=== PATIENT | male | born 1935 | race Caucasian/White ===

== ENCOUNTER → 2017-03-30 | Outpatient (CLI) | payer OTHER ==
[~2017-03-30] MED LIST: COMBIGAN EYE DR10 ML OP
== END ==
LOC: MRI 03-22 10:37
DX: R42 Dizziness and giddiness (principal)

== ENCOUNTER → 2017-04-15 | Outpatient (CLI) | payer OTHER | LOC: ULTRA 10:59 | DX: R26.89 Other abnormalities of gait and mobility (principal); R42 Dizziness and giddiness ==

== ENCOUNTER → 2017-04-26 | Outpatient (CLI) | payer OTHER ==
[2017-04-26 10:43] LABS: CREATININE 0.8 mg/dL (0.7-1.3)
== END ==
LOC: CAT 07:54
PROVIDERS: Psychiatry & Neurology Neurology
DX: I65.22 Occlusion and stenosis of left carotid artery (principal)

== ENCOUNTER → 2018-10-16 | Outpatient (CLI) | payer OTHER | LOC: CAT 10:20 | DX: Z13.6 Encounter for screening for cardiovascular disorders (principal); E78.00 Pure hypercholesterolemia, unspecified ==

== ENCOUNTER 2021-04-13 18:42 | Emergency (ER) | payer OTHER ==
[~2021-04-13] VITALS: Ht 185.4 cm; Wt 72.6 kg
[2021-04-13] MEDS ORDERED: XANAX 0.25 MG0.25 MG PO (18:48)
[2021-04-13 19:52] LABS: ABSOLUTE NEUTROPHILS 6.2 thou/uL (1.4-8.2); BASOPHILS 0.4 % (0.0-2.0); EOSINOPHILS 1.5 % (0.0-3.0); HEMATOCRIT 36.3 % (42.0-52.0); HEMOGLOBIN 12.2 gm/dL (14.0-18.0); MCH 32.2 pg (26.0-34.0); MCHC 33.7 g/dL (28.0-37.0); MCV 95.7 fL (80.0-100.0); MONOCYTES 9.4 % (1.0-8.0); POLYS 75.7 % (36.0-66.0); RBC 3.79 mil/uL (4.50-6.00); RDW 14.4 % (10.5-14.5); WBC 8.2 thou/uL (4.0-11.0)
[2021-04-13 20:01] LABS: ANION GAP 12 mmol/L (7-16); BUN 20 mg/dL (7-18); CHLORIDE 103 mmol/L (98-107); CO2 22 mmol/L (21-32); CREATININE 0.9 mg/dL (0.7-1.3); GLUCOSE 123 mg/dL (74-106); POTASSIUM 3.8 mmol/L (3.5-5.1); SODIUM 137 mmol/L (136-145)
[2021-04-13 20:11] LABS: ALBUMIN 3.3 g/dL (3.4-5.0); LIPASE 64 U/L (73-393); SGOT 25 U/L (15-37); SGPT 35 U/L (16-63); TOTAL BILIRUBIN 0.6 mg/dL (0.2-1.0); TOTAL PROTEIN 7.2 g/dL (6.4-8.2); TROPONIN-I <0.06 ng/mL (<0.06)
[2021-04-13 20:20] LABS: PLATELET COUNT 153 thou/uL (150-400)
[2021-04-13 20:41] LABS: URINE BILIRUBIN NEGATIVE (Negative); URINE BLOOD NEGATIVE (Negative); URINE CLARITY CLEAR; URINE COLOR YELLOW; URINE GLUCOSE-RANDOM* NEGATIVE (Negative); URINE KETONES NEGATIVE (Negative); URINE LEUKOCYTES-REFLEX NEGATIVE (Negative); URINE NITRITE-REFLEX NEGATIVE (Negative); URINE PROTEIN (DIPSTICK) NEGATIVE (Negative); URINE SPECIFIC GRAVITY >= 1.030 (1.005-1.035)
[2021-04-13 21:41] VITALS: BP 139/75
--- NOTE | 2021-04-14 13:04 | EKG ---
[address] [address] ELECTROCARDIOGRAM REPORT Name: OGADELA Duenas Room #: [facility] [id number] Admission: 04/13/21 Attend Phys: Discharge: 04/13/21 Date of : 39 Report #: [id number] [facility] ED Test Date: 2021-04-13 Test Time: 18:57:21 Pat Name: ADELA FOLEY Department: Room: Gender: Public Address Technician: [place] : 1935 Requested By: Maldonado Rg Order Number: [id number] MD: Lebron Taveras Measurements Intervals [place] Rate: 81 P: 61 [place]: 138 QRS: 11 QRSD: 109 T: 31 QT: 394 QTc: 458 Interpretive Statements Sinus rhythm Probable left atrial enlargement No previous ECG available for comparison Electronically Signed On 04-14-2021 13:04:16 CDT by Lebron Taveras [email or web address] <ELECTRONICALLY SIGNED> By: Lebron Taveras MD 04/14/21 1304 [id number] Lebron Taveras MD /EPI
== END 2021-04-13 21:52 | disposition home or self-care (01) ==
LOC: ER 18:42
PROVIDERS: Emergency Medicine
DX: R53.1 Weakness (principal)